=== PATIENT | female | born 1945 | race Caucasian/White ===

== ENCOUNTER → 2019-04-16 | Outpatient (CLI) | payer OTHER ==
[~2019-04-16] MED LIST: BACTRIM DS TAB1 EACH PO; CARISOPRODOL 3350 MG PO; IBUPROFEN 400400 M1 PO; NORCO 5-325 TA1 EACH PO; PHENERGAN 25 MG25 M1 PO; RANITIDINE 150150 M1 PO
== END ==
LOC: M.RAD 04-12 14:27
DX: Z12.31 Encounter for screening mammogram for malignant neoplasm of breast (principal); M85.88 Other specified disorders of bone density and structure, other site; E89.40 Asymptomatic postprocedural ovarian failure

== ENCOUNTER 2019-07-16 00:39 | Observation (INO) | payer OTHER ==
[~2019-07-16] VITALS: Ht 177.8 cm; Wt 85.3 kg
[2019-07-16 00:43] VITALS: BP 106/73
[2019-07-16] MEDS ORDERED: EVISTA60 MG PO (00:52)
[2019-07-16 01:34] LABS: HEMATOCRIT 42.7 % (37.0-47.0); HEMOGLOBIN 14.3 gm/dL (12.0-15.0); MCH 32.3 pg (26.0-34.0); MCHC 33.5 g/dL (28.0-37.0); MCV 96.2 fL (80.0-100.0); MPV 8.7 fl. (7.2-11.1); NUCLEATED RBCS 0 /100WBC; PLATELET COUNT* 137 thou/uL (150-400); RBC 4.44 mil/uL (4.20-5.00); RDW-CV 13.8 % (10.5-14.5); WBC 9.3 thou/uL (4.0-11.0)
[2019-07-16 01:46] LABS: CALCIUM 9.5 mg/dL (8.5-10.1); CREATININE 0.9 mg/dL (0.6-1.3); POTASSIUM 3.9 mmol/L (3.5-5.1)
[2019-07-16 01:50] LABS: ALBUMIN 3.8 g/dL (3.4-5.0); TOTAL BILIRUBIN 0.6 mg/dL (<0.1-1.0); TOTAL PROTEIN 7.4 g/dL (6.4-8.2)
[2019-07-16 02:01] LABS: ABSOLUTE MONOCYTES 0.4 thou/uL (0.0-1.2); ABSOLUTE NEUTROPHILS 7.9 thou/uL (1.6-8.1); ANISOCYTOSIS Occasional; PLATELET ESTIMATE DECREASED; TOXIC GRANULATION 1+
[2019-07-16 04:58] VITALS: BP 121/99
[2019-07-16 05:00] VITALS: BP 152/94
[2019-07-16 08:15] VITALS: BP 115/54
--- NOTE | 2019-07-16 10:55 | EKG ---
[place] [address] ELECTROCARDIOGRAM REPORT Name: DEVAUGHNSREECEDRIC EDMONDSON Room: [address] ADM IN .R.#: [id number] Admission: 07/16/19 Attend Phys: Clem Chou Discharge: Date of : 45 Report #: [id number] THIS REPORT FOR: //name// [facility] ED Test Date: 2019-07-16 Test Time: 01:13:31 Pat Name: SREE CANTOR Department: Room: [facility] Gender: F Key Cutter: SCOTTY : 1945 Requested By: Elizabeth Welsh Order Number: [id number] MD: Holden Hunter Measurements Intervals Cisco Rate: 80 P: 16 MD: 126 QRS: -7 QRSD: 95 T: 48 QT: 405 QTc: 468 Interpretive Statements Sinus rhythm Borderline ST depression, lateral leads Compared to ECG 01/09/2012 00:18:02 no change Electronically Signed On 07-16-2019 10:54:44 CHRONOGRAPH OPERATOR by Holden Hunter [email or web address] <ELECTRONICALLY SIGNED> By: Holden Hunter MD, [facility] 07/16/19 1054 [id number] [id number] Holden Hunter MD, [facility] /EPI
--- NOTE | 2019-07-16 15:27 | CON ---
[address] [address] CONSULTATION Name: SREE CANTOR Room: [address] IN M.R.#: [id number] Admission: 07/16/19 Attend Phys: Clem Chou Discharge: Date of : 45 Report #: [id number] THIS REPORT FOR: //name// CC: Eusebio Marvin DATE OF SERVICE: 07/16/2019 CONSULTING PHYSICIAN: Everett Smith MD REASON FOR CONSULTATION: Small bowel obstruction. ASSESSMENT: 1. Small bowel obstruction. RECOMMENDATIONS: 1. Thank you for the consultation. We will follow along. 2. Recommend conservative management for now. Recommend IV fluid support. 3. Given that the patient has not vomited since being here and her nausea has subsided, I would be okay with trying clear liquid diet today. If she does not tolerate this well, we will back down to n.p.o. status. 4. If the patient does not have return of bowel function, we will consider small bowel follow through. 5. She is at high risk for adhesive small-bowel obstruction given her many abdominal surgeries in the past. On the CT scan obstruction does appear to be associated with an anastomosis of the small bowel. HISTORY OF PRESENT ILLNESS: The patient is a very pleasant 74-year-old female who presented with a 1-day history of vomiting. The patient reports that she began having abdominal pain yesterday, shortly after that she started vomiting. She vomited from 08:30 to 12:30 last night and presented to the ER. The patient has not vomited since being here and her nausea has subsided as well. The patient reports that her abdominal pain is located in her left lower quadrant and is sharp in nature. No exacerbating or relieving factors. It is constant in duration. The patient reports that she has had abdominal pain in the past as well, but this episode started yesterday. Her last bowel movement was Tuesday night, is regular, nonbloody, no diarrhea. She does take fiber for constipation. She is passing gas since being in the hospital. PAST MEDICAL HISTORY: 1. Hill syndrome, MLH1. 2. History of colon cancer. 3. [place] [address] CONSULTATION Name: SREE CANTOR Room: [address]#: [id number] Admission: 07/16/19 Attend Phys: Clem Chou Discharge: Date of : 45 Report #: [id number] 4. History of throat cancer. 5. Diverticulitis x 4 episodes. 6. Denies any other medical problems. PAST SURGICAL HISTORY: 1. Ascending hemicolectomy. 2. Appendectomy. 3. Cholecystectomy. 4. Cystectomy with urostomy placement. 5. Hysterectomy with bilateral oophorectomy. SOCIAL HISTORY: Denies use of alcohol, tobacco, or recreational drugs. She is retired. FAMILY HISTORY: Has many aunts and other relatives with Hill syndrome. She has many other family members with colon cancers in particular. REVIEW OF SYSTEMS: CONSTITUTIONAL: No fever. No chills. HEENT: Denies blurring of vision, double vision, headaches, hearing loss, sinus drainage or sore throat. Denies blurring of vision, double vision, headaches, hearing loss, sinus drainage or sore throat. CARDIOVASCULAR: Denies chest pain, palpitations, orthopnea or paroxysmal nocturnal dyspnea. RESPIRATORY: Denies cough, wheezing, hemoptysis, or shortness of air. GASTROINTESTINAL: See above and below. GENITOURINARY: Denies dysuria or hematuria or kidney stones. No urinary frequency, urgency or incontinence. Denies dysuria or hematuria or kidney stones. No urinary frequency, urgency or incontinence. MUSCULOSKELETAL: No joint pain. No muscle pain. NEUROLOGICAL: Denies tremor, stroke or seizure. Denies tremor, stroke or seizure. HEMATOLOGIC/LYMPHATICS: Denies easy bruising, easy bleeding or enlarged lymph nodes. SKIN: No rash or ulceration. ENDOCRINE: No heat or cold intolerance PSYCHIATRIC: Denies depression, anxiety, or schizophrenia. PHYSICAL EXAMINATION: GENERAL: No apparent distress, alert and oriented x 3. VITAL SIGNS: Temperature 36.4, pulse 95, respiratory rate 20, blood pressure 152/94. HEENT: PERRLA, EOMI, MMM, NCAT. NECK: Supple. No LAD. CARDIOVASCULAR: Regular rhythm and rate. Hemodynamically stable. Normal capillary refill. Regular rhythm and rate. Hemodynamically stable. [place] [address] CONSULTATION Name: SREE CANTOR Room: [address] IN [facility]#: [id number] Admission: 07/16/19 Attend Phys: Clem Chou Discharge: Date of : 45 Report #: [id number] PULMONARY: Nonlabored. Clear to auscultation bilaterally. ABDOMEN: Soft, nontender, minimally distended, many previous midline exploratory laparotomy incisions well healed, urostomy present on the right, no guarding, rebound, or rigidity. No obvious hernia is detected on exam. EXTREMITIES: Calves soft, nontender, no edema. SKIN: No rashes or bruises. PSYCHIATRIC: Normal mood and affect Normal mood and affect. NEUROLOGICAL: Grossly intact. CN II-XII grossly intact. MUSCULOSKELETAL: 5/5 strength in upper extremities and lower extremities bilaterally LYMPHATICS: No cervical, inguinal, or supraclavicular lymphadenopathy. LABORATORY DATA: White blood count 9.3, hemoglobin 14.3, hematocrit 42.7, platelets 137. Sodium 143, potassium 3.9, BUN 20, creatinine 0.9, lipase 65. IMAGING: CT of the abdomen and pelvis. Impression: 1. Dilated proximal small bowel measuring as much as 3 cm decompressed distal small bowel, compatible with small-bowel obstruction, the transition zone may be associated with the anastomosis in the right lower quadrant. 2. There is mural edema and inflammation involving the small bowel loop in the midline abdomen near the urostomy. This probably represents some focal small bowel inflammation or enteritis. It may also be contributing to the patient's small-bowel obstruction. 3. Changes of cystectomy and urinary diversion. 4. Other findings as discussed above. <ELECTRONICALLY SIGNED> By: Everett Smith MD 07/16/19 1527 [id number] [id number] Smith MD /nt
[2019-07-16 20:30] VITALS: BP 110/61
[2019-07-17 15:14] VITALS: BP 110/61
== END 2019-07-17 16:30 | disposition home or self-care (01) ==
LOC: M.ERS 00:39 → M.ORTHSURG 04:14 → M.TBA-ER 04:14 → M.ORTHSURG 04:53
PROVIDERS: Personal Emergency Response Attendant; ADMIT Internal Medicine
DX: K56.609 Unspecified intestinal obstruction, unspecified as to partial versus complete obstruction (principal); R11.2 Nausea with vomiting, unspecified; Z85.038 Personal history of other malignant neoplasm of large intestine; Z85.51 Personal history of malignant neoplasm of bladder; Z85.21 Personal history of malignant neoplasm of larynx